=== PATIENT | male | born 1980 | race Caucasian/White ===

== ENCOUNTER 2020-07-25 17:23 | Emergency (ER) | payer MEDICAID, SELFPAY ==
[2020-07-25 17:25] VITALS: BP 129/60; PULSE 117; RESP 18; TEMP 36.4; O2SAT 99; BMI 33.5
--- NOTE | 2020-07-25 17:50 | ED.VIS.GEN ---
History of Present Illness Chief Complaint: Lower Extremity Injury Narrative: This patient is a 40-year-old male who presents with left knee pain. He actually reports chronic pain for years in that knee but it is been worse for the past 3 days. He is able to ambulate. No specific trauma fall or injury. No swelling. He states it feels like there is a lot of pressure inside the knee itself. No fevers. He is not diabetic. Past Medical History - Allergies and Home Meds Allergies/Adverse Reactions: Allergies No Known Allergies Allergy (Verified 07/25/20 17:27) Past Medical History: - - Hypertension Smoking Status: Heavy Smoker (>10/day) Review of Systems All systems negative except as indicated General: Denies: Fever Eyes: Denies: Visual changes - bilaterally ENT: Denies: Bilateral ear pain Cardiovascular: Denies: Chest pain Respiratory: Denies: Dyspnea Gastrointestinal: Denies: Vomiting, Diarrhea Musculoskeletal: Reports: Extremity Pain Skin: Denies: Rash Neurological: Denies: Headache Physical Exam Vital Signs/Narrative: Vital Signs Temp Pulse Resp BP Pulse Ox 07/25/20 17:25 97.6 F L 117 H 18 129/60 H 99 Inital Vital Signs reviewed: Yes General: Well nourished Head: Normocephalic Eyes: EOMI ENT: Moist mucous membranes Neck: Supple Cardiovascular: Regular rate Respiratory: No distress Extremities: - - Patient has no focal tenderness of the left knee. He does not have an appreciable effusion it is not erythematous it is not warm to the touch he has active full range of motion extensor mechanism is intact. Skin: Normal color Neurological: Alert Psychological: Normal affect Diagnostic/Tx/Re-eval - Medical Decision Making Left knee x-ray was obtained. On my review this shows no fracture. Patient and his visitor became upset and did not want to wait any longer and asking when they can be discharged. Patient was given an Vlad wrap and crutches. He was given a prescription for Mobic. He understands to return for new or worsening symptoms. He was advised to follow-up with orthopedics. Patient was discharged. ED Disposition - Plan for ED Patient: Disposition: Home or Assisted Living Diagnosis: Knee pain Instructions: ED Knee Pain [facility] Prescriptions: Meloxicam [Mobic] 15 mg PO DAILY #14 tab Prescription Printed
--- NOTE | 2020-07-25 18:15 | RAD_ITS ---
STUDY: X-RAY - LEFT KNEE REASON FOR EXAM: Male, 40 years old. Left knee pain for 3 days. No known injury. TECHNIQUE: 5 view(s) of the knee. COMPARISON: None. FINDINGS: Normal visualized distal femur. Normal visualized proximal tibia and fibula. Normal proximal tibiofibular articulation. There is no acute fracture, dislocation or destructive osseous pathology. There is mild degenerative arthrosis of the medial femorotibial compartment. There is mild degenerative arthrosis of the lateral femorotibial compartment. There is mild degenerative arthrosis of the patellofemoral articulation. There is no demonstrated joint effusion. The soft tissue structures are unremarkable. RAD/Knee 4 or More Views IMPRESSION: Degenerative arthrosis. Electronically Signed: Michael Garner DO at 18:39 EDT Tel [phone], Service support ,
[2020-07-25 20:09] VITALS: RESP 14
== END 2020-07-25 20:11 | disposition home or self-care (01) ==
PROVIDERS: Emergency Provider Emergency Medicine
DX: M25.562 Pain in left knee (principal)
CPT/HCPCS: 73564; 99283